=== PATIENT | female | born 2000 | race Caucasian/White ===

== ENCOUNTER → 2022-04-20 | Outpatient (CLI) | payer BC ==
--- NOTE | 2022-04-20 17:59 | Diagnostic Imaging Report ---
INDICATION: patient, survey. TECHNIQUE: Multiple real-time grayscale images were obtained over the gravid uterus. COMPARISON: There is no prior study for comparison. FINDINGS: Twin uterine gestations are visualized. Baby A measures 20 weeks 4 days in size. Baby B measures 21 weeks 0 days in size. Baby A is on the maternal right, Baby B is on maternal left. Both babies are in cephalic presentation. Amniotic fluid index for each was 20.86 cm. Placenta is anterior on Baby A and posterior on Baby B with no evidence of previa. heart rate for Baby A was 142 bpm. heart rate for Baby B was 160 bpm. Cervical length is 3.6 cm. survey shows normal-appearing kidneys and bladder for both fetuses. Normal-appearing stomach is seen. Intracranial ventricles appear normal on both sides. Four-chamber heart view appears normal. Cord insertion and three-vessel cord appear normal. Views of the spine are unremarkable. Maternal adnexa could not be visualized. Biometrical measurements are as follows: Biparietal 4.86 cm, age 20 weeks 5 days. Head circumference 18.06 cm, age 20 weeks 4 days. Abdominal circumference 14.93 cm, age 20 weeks 2 days. Femur length 3.34 cm, age 20 weeks 4 days. Sonographic estimate age: 20 weeks 4 days. Sonographic estimated date of delivery: 09/03/2022. Estimated Weight: 348 gm (+/- 51 gm). LMP percentile: 49%. heart rate: 142 beats per minute. number: 1 of 2. IMPRESSION: Twin intrauterine gestations, as described above, with Baby A measuring 20 weeks 4 days in size and Baby B measuring 21 weeks 0 days in size. There is no detectable abnormality for either fetus. Dictated by: Dictated on workstation # [id number]
== END ==
LOC: RAD 15:15
PROVIDERS: ATTEND Obstetrics & Gynecology
DX: Z36.89 Encounter for other specified antenatal screening (principal); Z3A.20 20 weeks gestation of pregnancy
CPT/HCPCS: 76805; 76810

== ENCOUNTER 2022-04-25 12:30 | Observation (INO) | payer BC ==
[~2022-04-25] VITALS: Ht 170.2 cm; Wt 70.4 kg
[2022-04-25] MEDS ORDERED: NS IV 1000 ML 1,000 ML ONE (12:52)
[2022-04-25 13:00] VITALS: BP 121/67
[2022-04-25] MEDS ORDERED: NS IV 1000 ML 1,000 ML IV SCH (13:00)
[2022-04-25 13:40] LABS: BILIRUBIN,URINE NEGATIVE (NEGATIVE); CLARITY,URINE CLEAR; COLOR,URINE YELLOW; GLUCOSE, URINE (UA) NEGATIVE (NEGATIVE); KETONES,URINE NEGATIVE (NEGATIVE); LEUKOCYTE ESTERASE ,URINE NEGATIVE (NEGATIVE); NITRITE,URINE NEGATIVE (NEGATIVE); PROTEIN,URINE NEGATIVE (NEGATIVE)
[2022-04-25 13:41] LABS: HEMATOCRIT 32 % (35-52); HEMOGLOBIN 11.3 g/dL (11.5-16.0); MEAN CORPUSCULAR HEMOGLOBIN 31 pg (25-34); MEAN CORPUSCULAR HGB CONC 35 g/dL (32-36); MEAN CORPUSCULAR VOLUME 89 fL (80-99); MEAN PLATELET VOLUME 9.8 fL (9.0-12.2); PLATELET COUNT 199 10^3/uL (130-400); WHITE BLOOD COUNT 10.8 10^3/uL (4.3-11.0)
[2022-04-25 13:52] LABS: BACTERIA,URINE NEGATIVE /HPF; RBC,URINE 0-2 /HPF; SQUAMOUS EPITHELIAL CELL,UR RARE /HPF
[2022-04-25 13:59] LABS: ALBUMIN 3.1 GM/DL (3.2-4.5); BILIRUBIN,TOTAL 0.2 MG/DL (0.1-1.0); CALCIUM 8.9 MG/DL (8.5-10.1); CREATININE SERUM 0.61 MG/DL (0.60-1.30); POTASSIUM 3.5 MMOL/L (3.6-5.0); TOTAL PROTEIN 5.7 GM/DL (6.4-8.2)
[2022-04-25] MEDS ORDERED: ceFAZolin INJECTION 1,000 MG in NS (IVPB) 50 ML IV ONE ×5 (14:00→22:00)
[2022-04-25] MEDS ORDERED: morphine INJ 4 MG/ML 1 ML (VIAL/SYRINGE) IVP PRN (14:00)
[2022-04-25] MEDS: ONDANSETRON 4 MG/2 ML (SDV) Z0FRAN IVP PRN ×2 (14:33→19:57)
[2022-04-25 15:05] VITALS: BP 99/53
--- NOTE | 2022-04-25 15:17 | Diagnostic Imaging Report ---
PROCEDURE: US Renal Bilateral. TECHNIQUE: Multiple real-time grayscale images were obtained over the kidneys in various projections bilaterally. INDICATION: Kidney stones. FINDINGS: Right kidney measures 12.7 x 5.8 x 5.5 cm, and the left kidney measures 10.1 x 5.6 x 5.6 cm. Cortical thickness and echogenicity are normal. There is an echogenic focus in the left kidney measuring approximately 4 mm x 7 mm in size suggestive of a kidney stone. There is moderate hydronephrosis bilaterally. The ureteral jets within the bladder were not visualized. IMPRESSION: Moderate bilateral hydronephrosis with probable nonobstructing calculus in the left kidney. Dictated by: Dictated on workstation # [id number]
--- NOTE | 2022-04-25 15:37 | Diagnostic Imaging Report ---
INDICATION: Evaluate well-being. FINDINGS: A twin intrauterine gestation is again noted. Baby A is on the maternal right in a cephalic presentation with a heart rate of 143 BPM. Baby B is maternal left in a transverse presentation with head to maternal right with a heart rate of 144 BPM. Baby A placenta is anterior and baby B placenta is posterior. Amniotic fluid index is 17 cm. Cervical length is 5 cm. There is no previa identified. No complicating features are detected. IMPRESSION: Twin live dichorionic, diamniotic of approximately 21 weeks' gestation. No complicating features are detected. Dictated by: Dictated on workstation # [id number]
[2022-04-25 16:00] VITALS: BP 104/51
[2022-04-25] MEDS: NS IV 1000 ML 1,000 ML IV SCH (18:48)
[2022-04-25] MEDS ORDERED: morphine INJ 10 MG/ML 1ML (SYR OR VIAL) ONE (19:53)
[2022-04-25] MEDS: morphine INJ 10 MG/ML 1ML (SYR OR VIAL) IVP PRN ×2 (19:56→23:29)
[2022-04-25 20:00] VITALS: BP 101/54
[2022-04-25] MEDS ORDERED: ACETAMINOPHEN 500 MG TAB (TYLENOL) PO PRN (23:30)
[2022-04-25 23:41] VITALS: BP 113/56
[2022-04-26] MEDS: morphine INJ 10 MG/ML 1ML (SYR OR VIAL) IVP PRN ×2 (03:08→08:48)
[2022-04-26] MEDS: NS IV 1000 ML 1,000 ML IV SCH (03:08)
[2022-04-26] MEDS ORDERED: LACTATED RINGERS 1,000 ML IV SCH (04:15)
[2022-04-26] MEDS ORDERED: TERBUTALINE INJ 1 MG/ML (BRETHINE) AMP SC PRN (04:15)
[2022-04-26] MEDS ORDERED: MINERAL OIL 30 ML UDC TOP PRN (04:15)
[2022-04-26] MEDS ORDERED: D5 LR IV SOLUTION 1,000 ML IV SCH (04:15)
[2022-04-26] MEDS ORDERED: CATHETER FLUSH 10 ML SYR IV SCH (06:00)
[2022-04-26 08:48] VITALS: BP 94/47
[2022-04-26] MEDS: ONDANSETRON 4 MG/2 ML (SDV) Z0FRAN IVP PRN (08:48)
--- NOTE | 2022-04-26 08:48 | History & Physical-OB ---
OB - Chief Complaint & HPI Date/Time Date of Admission: Date of Admission: Apr 25, 2022 at 12:44 Date seen by a Provider: Apr 26, 2022 Time Seen by a Provider: 08:35 Chief Complaint/History OB-Reason for Admission/Chief: Medical Complication (Nephrolitiasis) Hx : 1 Hx Para: 0 Expected Date of Delivery: Sep 05, 2022 Gestational Age in Weeks: 21 Gestational Age in Days: 1 Admission Nurse Assessment Rev: Yes History of Labs Laboratory Tests Test 04/25/22 13:20 Range/Units White Blood Count 10.8 4.3-11.0 10^3/uL Red Blood Count 3.63 L 3.80-5.11 10^6/uL Hemoglobin 11.3 L 11.5-16.0 g/dL Hematocrit 32 L 35-52 % Mean Corpuscular Volume 89 80-99 fL Mean Corpuscular Hemoglobin 31 25-34 pg Mean Corpuscular Hemoglobin Concent 35 32-36 g/dL Red Cell Distribution Width 12.5 10.0-14.5 % Platelet Count 199 130-400 10^3/uL Mean Platelet Volume 9.8 9.0-12.2 fL Urine Color YELLOW Urine Clarity CLEAR Urine pH 7.0 5-9 Urine Specific [place] 1.015 L 1.016-1.022 Urine Protein NEGATIVE NEGATIVE Urine Glucose (UA) NEGATIVE NEGATIVE Urine Ketones NEGATIVE NEGATIVE Urine Nitrite NEGATIVE NEGATIVE Urine Bilirubin NEGATIVE NEGATIVE Urine Urobilinogen 0.2 < = 1.0 MG/DL Urine Leukocyte Esterase NEGATIVE NEGATIVE Urine RBC (Auto) 1+ H NEGATIVE Urine RBC 0-2 /HPF Urine WBC NONE /HPF Urine Squamous Epithelial Cells RARE /HPF Urine Crystals NONE /LPF Urine Bacteria NEGATIVE /HPF Urine Casts NONE /LPF Urine Mucus NEGATIVE /LPF Urine Culture Indicated NO Sodium Level 139 135-145 MMOL/L Potassium Level 3.5 L 3.6-5.0 MMOL/L Chloride Level 110 H 98-107 MMOL/L Carbon Dioxide Level 19 L 21-32 MMOL/L Anion Gap 10 5-14 MMOL/L Blood Urea Nitrogen 6 L 7-18 MG/DL Creatinine 0.61 0.60-1.30 MG/DL Estimat Glomerular Filtration Rate 130 BUN/Creatinine Ratio 10 Glucose Level 78 70-105 MG/DL Calcium Level 8.9 8.5-10.1 MG/DL Corrected Calcium 9.6 8.5-10.1 MG/DL Total Bilirubin 0.2 0.1-1.0 MG/DL Aspartate Amino Transf (AST/SGOT) 23 5-34 U/L Alanine Aminotransferase (ALT/SGPT) 22 0-55 U/L Alkaline Phosphatase 73 40-136 U/L Total Protein 5.7 L 6.4-8.2 GM/DL Albumin 3.1 L 3.2-4.5 GM/DL Allergies and Home Medications Allergies Coded Allergies: No Known Drug Allergies (Unverified , 04/25/22) Patient Home Medication List Home Medication List Reviewed: Yes OB - History Hx of Present Care: Yes Ultrasounds: Abnormal US findings (Di di twins) Obstetrical Complications: None Medical Complications: Other (nephrolithiasis) Patient Past Medical History n/c Immunizations Influenza Vaccine Up-to-Date: No; Not Current OB - Admission Exam Physical Exam Vitals: Vital Signs 04/25/22 23:41 Temp 37.1 Pulse 84 Resp 18 B/P (MAP) 113/56 (75) Pulse Ox 99 O2 Delivery Room Air HEENT: NCAT Heart: Rhythm Normal Lungs: Clear Abdomen: Other (diffuse low pelvic tenderness, radiating around bilaterally to flanks) Cervical Dilatation: None Effacement: 50% Station: -3 Membranes: Intact Labs Laboratory Tests Test 04/25/22 13:20 Range/Units White Blood Count 10.8 4.3-11.0 10^3/uL Red Blood Count 3.63 L 3.80-5.11 10^6/uL Hemoglobin 11.3 L 11.5-16.0 g/dL Hematocrit 32 L 35-52 % Mean Corpuscular Volume 89 80-99 fL Mean Corpuscular Hemoglobin 31 25-34 pg Mean Corpuscular Hemoglobin Concent 35 32-36 g/dL Red Cell Distribution Width 12.5 10.0-14.5 % Platelet Count 199 130-400 10^3/uL Mean Platelet Volume 9.8 9.0-12.2 fL Urine Color YELLOW Urine Clarity CLEAR Urine pH 7.0 5-9 Urine Specific [place] 1.015 L 1.016-1.022 Urine Protein NEGATIVE NEGATIVE Urine Glucose (UA) NEGATIVE NEGATIVE Urine Ketones NEGATIVE NEGATIVE Urine Nitrite NEGATIVE NEGATIVE Urine Bilirubin NEGATIVE NEGATIVE Urine Urobilinogen 0.2 < = 1.0 MG/DL Urine Leukocyte Esterase NEGATIVE NEGATIVE Urine RBC (Auto) 1+ H NEGATIVE Urine RBC 0-2 /HPF Urine WBC NONE /HPF Urine Squamous Epithelial Cells RARE /HPF Urine Crystals NONE /LPF Urine Bacteria NEGATIVE /HPF Urine Casts NONE /LPF Urine Mucus NEGATIVE /LPF Urine Culture Indicated NO Sodium Level 139 135-145 MMOL/L Potassium Level 3.5 L 3.6-5.0 MMOL/L Chloride Level 110 H 98-107 MMOL/L Carbon Dioxide Level 19 L 21-32 MMOL/L Anion Gap 10 5-14 MMOL/L Blood Urea Nitrogen 6 L 7-18 MG/DL Creatinine 0.61 0.60-1.30 MG/DL Estimat Glomerular Filtration Rate 130 BUN/Creatinine Ratio 10 Glucose Level 78 70-105 MG/DL Calcium Level 8.9 8.5-10.1 MG/DL Corrected Calcium 9.6 8.5-10.1 MG/DL Total Bilirubin 0.2 0.1-1.0 MG/DL Aspartate Amino Transf (AST/SGOT) 23 5-34 U/L Alanine Aminotransferase (ALT/SGPT) 22 0-55 U/L Alkaline Phosphatase 73 40-136 U/L Total Protein 5.7 L 6.4-8.2 GM/DL Albumin 3.1 L 3.2-4.5 GM/DL OB - Assessment/Plan/Diagnosis Assessment Assessment: other Admission Dx Diagnosis: 22 yo @ 21.1 weeks with Di/Di Twins Nephrolithiasis Acute flank, low suprapubic pain Microscopic hematuria Admission Status: Observation Reason for Inpatient Admission: Diagnosis: 22 yo @ 21.1 weeks with Di/Di Twins Nephrolithiasis Acute flank, low suprapubic pain Microscopic hematuria Plan Other Plan IVF hydration Pain control Prophylaxis antibiotics -Plan to send home today on oral hydration, pain control, and antibiotics to follow up in office tomorrow ANTOINE SHELDON DO Apr 26, 2022 08:48
== END 2022-04-26 09:17 | disposition home or self-care (01) ==
LOC: LDRP 12:30 → UNDOADMOB 12:44 → LDRP 12:44 → INTOOBSV 04-26 04:00 → OBSVTOIN 04-26 04:00 → UNDODISOB 04-26 09:17
PROVIDERS: ADMIT Obstetrics & Gynecology; ATTEND Obstetrics & Gynecology
DX: O26.832 Pregnancy related renal disease, second trimester (principal); N20.0 Calculus of kidney; Z3A.21 21 weeks gestation of pregnancy
CPT/HCPCS: 36415; 76770; 76815; 80053; 81000; 85027; 87210; G0378

== ENCOUNTER 2022-07-05 09:59 | Outpatient (CLI) | payer BC ==
[~2022-07-05] VITALS: Ht 170.2 cm; Wt 77.4 kg
[2022-07-05 10:17] VITALS: BP 111/67
[2022-07-05 10:50] LABS: BILIRUBIN,URINE NEGATIVE (NEGATIVE); CLARITY,URINE CLEAR; COLOR,URINE YELLOW; GLUCOSE, URINE (UA) NEGATIVE (NEGATIVE); KETONES,URINE NEGATIVE (NEGATIVE); LEUKOCYTE ESTERASE ,URINE 1+ (NEGATIVE); NITRITE,URINE NEGATIVE (NEGATIVE); PROTEIN,URINE TRACE (NEGATIVE)
[2022-07-05 11:00] LABS: RBC,URINE 50-100 /HPF; WBC,URINE 0-2 /HPF
[2022-07-05 11:01] LABS: BACTERIA,URINE MODERATE /HPF
[2022-07-05 11:07] VITALS: BP 98/56
[2022-07-05] MEDS ORDERED: NS IV 500 ML 500 ML IV SCH (11:15)
[2022-07-05] MEDS: BETAMETHASONE ACE/NA PHOS 6 MG/ML (CELESTONE SOLUSPAN) IM SCH (11:33)
[2022-07-05] MEDS ORDERED: D5 LR IV SOLUTION 1,000 ML IV ONE (12:38)
[2022-07-05] MEDS: D5 LR IV SOLUTION 1,000 ML IV SCH ×4 (12:44→19:40)
[2022-07-05] MEDS ORDERED: morphine INJ 10 MG/ML 1ML (SYR OR VIAL) IVP STA ×2 (14:27→19:02)
--- NOTE | 2022-07-05 14:32 | History & Physical-OB ---
OB - Chief Complaint & HPI Date/Time Date of Admission: Date of Admission: Date seen by a Provider: Jul 05, 2022 Time Seen by a Provider: 14:30 Chief Complaint/History OB-Reason for Admission/Chief: Hx : 1 Hx Para: 0 Expected Date of Delivery: Sep 05, 2022 Gestational Age in Weeks: 31 Gestational Age in Days: 1 Other reason for admission: Patient admitted for observation due to irregular contractions at 31 weeks with di/di twins. Reports after some fluid hydration no improvement in discomfort. Contractions have spaced out on tocometry. Admission Nurse Assessment Rev: Yes Allergies and Home Medications Allergies Coded Allergies: No Known Drug Allergies (Unverified , 04/25/22) Patient Home Medication List Home Medication List Reviewed: Yes No Active Prescriptions or Reported Meds OB - History Hx of Present Care: Yes Obstetrical History Hx : 1 Hx Para: 0 Hx Total # of Abortions (Spona: 0 Patient Past Medical History n/c Social History/Family History 2nd Hand Smoke Exposure: No OB - Admission Exam Physical Exam Vitals: Vital Signs 07/05/22 10:17 Temp 36.5 Pulse 85 Resp 18 B/P (MAP) 111/67 O2 Delivery Room Air HEENT: NCAT Heart: Rhythm Normal Lungs: Clear Abdomen: Gravid Extremities: Normal Reflexes: Normal Cervical Dilatation: Fingertip Effacement: 50% Station: -3 Membranes: Intact Heart Rate: 130's Accelerations: Accelerations Present Decelerations: No Decelerations Correction Variability: Average (6-25) Contractions on Admission: 6-10 Minutes Apart Intensity: Mild Labs Laboratory Tests Test 07/05/22 10:15 Range/Units Urine Color YELLOW Urine Clarity CLEAR Urine pH 7.0 5-9 Urine Specific [place] 1.010 L 1.016-1.022 Urine Protein TRACE H NEGATIVE Urine Glucose (UA) NEGATIVE NEGATIVE Urine Ketones NEGATIVE NEGATIVE Urine Nitrite NEGATIVE NEGATIVE Urine Bilirubin NEGATIVE NEGATIVE Urine Urobilinogen 0.2 < = 1.0 MG/DL Urine Leukocyte Esterase 1+ H NEGATIVE Urine RBC (Auto) 3+ H NEGATIVE Urine RBC 50-100 H /HPF Urine WBC 0-2 /HPF Urine Squamous Epithelial Cells 2-5 /HPF Urine Crystals NONE /LPF Urine Bacteria MODERATE H /HPF Urine Casts NONE /LPF Urine Mucus NEGATIVE /LPF Urine Culture Indicated NO OB - Assessment/Plan/Diagnosis Assessment Assessment: observation Admission Dx 22 yo @ 31 weeks with Di/Di Twins Irregular contractions Pelvic pain Dehydration Admission Status: Observation Reason for Inpatient Admission: 31 week contractions Plan Plan: Other Other Plan Will give pain control for now due to discomfort, betamethason given for lung maturity, IVF bolus given and plan to dismiss later this evening is still no cervical change. ANTOINE SHELDON DO Jul 05, 2022 14:32
[2022-07-05 14:46] VITALS: BP 109/55
[2022-07-05 19:45] VITALS: BP 117/61
[2022-07-05] MEDS ORDERED: diphenhydrAMINE 50 MG/ML INJ (BENADRYL) ONE (20:45)
[2022-07-05] MEDS ORDERED: diphenhydrAMINE 50 MG/ML INJ (BENADRYL) IVP ONE (21:00)
[2022-07-05] MEDS: morphine INJ 4 MG/ML 1 ML (VIAL/SYRINGE) IVP PRN (23:55)
[2022-07-06 00:02] VITALS: BP 117/64
[2022-07-06] MEDS: D5 LR IV SOLUTION 1,000 ML IV SCH ×2 (00:29→07:05)
[2022-07-06 04:29] VITALS: BP 104/56
[2022-07-06] MEDS: morphine INJ 4 MG/ML 1 ML (VIAL/SYRINGE) IVP PRN ×2 (04:36→07:40)
[2022-07-06 07:40] VITALS: BP 121/72
[2022-07-06] MEDS: BETAMETHASONE ACE/NA PHOS 6 MG/ML (CELESTONE SOLUSPAN) IM SCH (10:10)
== END 2022-07-06 10:27 | disposition home or self-care (01) ==
LOC: LDRP 09:59 → WSo 09:59
PROVIDERS: ATTEND Obstetrics & Gynecology
DX: O62.9 Abnormality of forces of labor, unspecified (principal); Z3A.31 31 weeks gestation of pregnancy
CPT/HCPCS: 81000; 96360; 96361; 96372; 96374; 96375; 96376; G0378

== ENCOUNTER 2022-08-22 01:28 | Inpatient (IN) | payer BC ==
[2022-08-21] MEDS: fentaNYL 2 mcg/ml BUPIVA 0.125 100 ML EPI SCH (04:54)
[2022-08-22] VITALS (53 sets, daily range): BP systolic 101–146; BP diastolic 55–90
[~2022-08-22] VITALS: Ht 170.2 cm; Wt 83.6 kg
[2022-08-22] MEDS ORDERED: HYDROmorphone 2 MG/ML VIAL (DILAUDID) IV ONE (02:15)
[2022-08-22] MEDS ORDERED: HYDROmorphone 2 MG/ML VIAL (DILAUDID) ONE (02:16)
[2022-08-22 02:24] LABS: BILIRUBIN,URINE NEGATIVE (NEGATIVE); CLARITY,URINE CLEAR; COLOR,URINE YELLOW; GLUCOSE, URINE (UA) NEGATIVE (NEGATIVE); KETONES,URINE NEGATIVE (NEGATIVE); LEUKOCYTE ESTERASE ,URINE TRACE (NEGATIVE); NITRITE,URINE NEGATIVE (NEGATIVE); PROTEIN,URINE NEGATIVE (NEGATIVE)
[2022-08-22] MEDS: D5 LR IV SOLUTION 1,000 ML IV SCH ×2 (02:29→09:54)
[2022-08-22 02:30] LABS: BASOPHILS % (AUTO) 0 % (0-10); EOSINOPHILS # (AUTO) 0.2 10^3/uL (0.0-0.3); EOSINOPHILS % (AUTO) 1 % (0-10); HEMATOCRIT 35 % (35-52); HEMOGLOBIN 11.2 g/dL (11.5-16.0); LYMPHOCYTES # (AUTO) 2.8 10^3/uL (1.0-4.0); LYMPHOCYTES % (AUTO) 23 % (12-44); MEAN CORPUSCULAR HEMOGLOBIN 25 pg (25-34); MEAN CORPUSCULAR HGB CONC 33 g/dL (32-36); MEAN CORPUSCULAR VOLUME 75 fL (80-99); MONOCYTES # (AUTO) 0.7 10^3/uL (0.0-1.0); MONOCYTES % (AUTO) 6 % (0-12); NEUTROPHILS # (AUTO) 8.4 10^3/uL (1.8-7.8); NEUTROPHILS % (AUTO) 69 % (42-75); PLATELET COUNT 211 10^3/uL (130-400); WHITE BLOOD COUNT 12.2 10^3/uL (4.3-11.0)
[2022-08-22 02:39] LABS: BACTERIA,URINE TRACE /HPF; RBC,URINE 0-2 /HPF; SQUAMOUS EPITHELIAL CELL,UR RARE /HPF; WBC,URINE 0-2 /HPF
[2022-08-22] MEDS ORDERED: ONDANSETRON 4 MG/2 ML (SDV) Z0FRAN IVP PRN (02:45)
[2022-08-22] MEDS ORDERED: LACTATED RINGERS 1,000 ML IV ONE (03:30)
[2022-08-22] MEDS ORDERED: fentaNYL 2 mcg/ml BUPIVA 0.125 100 ML ONE (04:11)
[2022-08-22] MEDS ORDERED: fentaNYL INJ 100 MCG/2 ML AMP ONE (04:39)
[2022-08-22] MEDS ORDERED: LACTATED RINGERS 1,000 ML IV SCH (05:15)
[2022-08-22] MEDS ORDERED: diphenhydrAMINE 50 MG/ML INJ (BENADRYL) IV PRN (05:15)
[2022-08-22] MEDS ORDERED: NALOXONE 0.4 MG/ML 1 ML (NARCAN) VIAL IV PRN ×3 (05:15→13:30)
[2022-08-22] MEDS ORDERED: METOCLOPRAMIDE INJ 10 MG/2 ML (REGLAN) IV PRN (05:15)
[2022-08-22] MEDS ORDERED: ONDANSETRON 4 MG/2 ML (SDV) Z0FRAN IV PRN (05:15)
[2022-08-22] MEDS ORDERED: CATHETER FLUSH 10 ML SYR IV SCH ×2 (06:00→14:00)
[2022-08-22] MEDS ORDERED: PREN-142 PO (06:26)
[2022-08-22] MEDS ORDERED: AMPICILLIN FOR IV USE 2,000 MG in NS (IVPB) 50 ML IV SCH (08:10)
[2022-08-22] MEDS ORDERED: LIDOCAINE 1% INJ 10 ML VIAL ONE (08:16)
[2022-08-22] MEDS ORDERED: OXYTOCIN PRE-MIX DRIP 1,000 ML IV ONE (08:16)
--- NOTE | 2022-08-22 08:19 | History & Physical-OB ---
OB - Chief Complaint & HPI Date/Time Date of Admission: Date of Admission: Aug 22, 2022 at 1:50 am Date seen by a Provider: Aug 22, 2022 Time Seen by a Provider: 07:25 Chief Complaint/History OB-Reason for Admission/Chief: Onset of Labor Hx : 1 Hx Para: 0 Expected Date of Delivery: Sep 05, 2022 Gestational Age in Weeks: 38 Gestational Age in Days: 0 Admission Nurse Assessment Rev: Yes History of Labs O pos Antibody neg RI RPR NR HBsAg NR HIV NR GC neg GBS neg Allergies and Home Medications Allergies Coded Allergies: No Known Drug Allergies (Unverified , 04/25/22) Patient Home Medication List Home Medication List Reviewed: Yes Vit No.124/Iron/FA ( Vitamin Tablet) 27 Mg Iron-800 Mcg Tablet, 1 EACH PO DAILY, (Reported) Entered as Reported by: CHARIS YADAV on 08/22/22625 Last Action: New Order OB - History Hx of Present Care: Yes Ultrasounds: Normal mid trimester US (diamniotic dichorionic twin vtx/vtx) Obstetrical Complications: None Medical Complications: None Patient Past Medical History Nephrolithiasis Social History/Family History 2nd Hand Smoke Exposure: No OB - Admission Exam Physical Exam Vitals: Vital Signs 08/22/22 08/22/22 08/22/22 04:56 05:26 06:42 Temp 36.7 Pulse 73 Resp 18 B/P (MAP) 108/56 (73) Pulse Ox 97 O2 Delivery Room Air HEENT: NCAT Heart: Rhythm Normal Lungs: Clear Abdomen: Gravid Extremities: Normal Reflexes: Normal Cervical Dilatation: 5cm Effacement: 75% Station: -1 Membranes: Intact Heart Rate: 130's Accelerations: Accelerations Present Decelerations: No Decelerations Short Term Variability: Present Fdc Variability: Average (6-25) Contractions on Admission: 6-10 Minutes Apart Intensity: Firm Labs Laboratory Tests Test 08/22/22 01:29 08/22/22 02:10 Range/Units Urine Color YELLOW Urine Clarity CLEAR Urine pH 7.0 5-9 Urine Specific [place] <=1.005 1.016-1.022 Urine Protein NEGATIVE NEGATIVE Urine Glucose (UA) NEGATIVE NEGATIVE Urine Ketones NEGATIVE NEGATIVE Urine Nitrite NEGATIVE NEGATIVE Urine Bilirubin NEGATIVE NEGATIVE Urine Urobilinogen 0.2 < = 1.0 MG/DL Urine Leukocyte Esterase TRACE H NEGATIVE Urine RBC (Auto) TRACE-I H NEGATIVE Urine RBC 0-2 /HPF Urine WBC 0-2 /HPF Urine Squamous Epithelial Cells RARE /HPF Urine Crystals NONE /LPF Urine Bacteria TRACE /HPF Urine Casts NONE /LPF Urine Mucus NEGATIVE /LPF Urine Culture Indicated NO White Blood Count 12.2 H 4.3-11.0 10^3/uL Red Blood Count 4.58 3.80-5.11 10^6/uL Hemoglobin 11.2 L 11.5-16.0 g/dL Hematocrit 35 35-52 % Mean Corpuscular Volume 75 L 80-99 fL Mean Corpuscular Hemoglobin 25 25-34 pg Mean Corpuscular Hemoglobin Concent 33 32-36 g/dL Red Cell Distribution Width 15.2 H 10.0-14.5 % Platelet Count 211 130-400 10^3/uL Mean Platelet Volume 11.0 9.0-12.2 fL Immature Granulocyte % (Auto) 1 % Neutrophils (%) (Auto) 69 42-75 % Lymphocytes (%) (Auto) 23 12-44 % Monocytes (%) (Auto) 6 0-12 % Eosinophils (%) (Auto) 1 0-10 % Basophils (%) (Auto) 0 0-10 % Neutrophils # (Auto) 8.4 H 1.8-7.8 10^3/uL Lymphocytes # (Auto) 2.8 1.0-4.0 10^3/uL Monocytes # (Auto) 0.7 0.0-1.0 10^3/uL Eosinophils # (Auto) 0.2 0.0-0.3 10^3/uL Basophils # (Auto) 0.0 0.0-0.1 10^3/uL Immature Granulocyte # (Auto) 0.1 0.0-0.1 10^3/uL Syphilis Total Antibody Negative Negative OB - Assessment/Plan/Diagnosis Assessment Assessment: active labor Admission Dx 22 yo @ 38 weeks Diamniotic dichorionic twin Active labor GBS neg Admission Status: Inpatient Order (span 2 midnights) Reason for Inpatient Admission: 22 yo @ 38 weeks Diamniotic dichorionic twin Active labor GBS neg Plan Plan: Expectant Management ANTOINE SHELDON DO Aug 22, 2022 8:19 am
--- NOTE | 2022-08-22 09:45 | Anesthesia-Regional Post-Op ---
Regional Patient Condition Mental Status: Alert, Oriented x3 Circulation: Same as Pre-Op Headache: Absent Sensation: Full Recovery Motor Block: Absent Post Op Complications Complications None Follow Up Care/Instructions Patient Instructions None needed. Anesthesia/Patient Condition Patient is doing well, no complaints, stable vital signs, no apparent adverse anesthesia problems. No complications reported per nursing. ALBERTO GAUTAM CRNA Aug 22, 2022 09:45
[2022-08-22] MEDS: fentaNYL 2 mcg/ml BUPIVA 0.125 100 ML EPI SCH (10:56)
[2022-08-22] MEDS ORDERED: METHYLERGONOVINE 0.2 MG/ML (METHERGINE) AMP ONE (11:59)
[2022-08-22] MEDS ORDERED: AMPICILLIN FOR IV USE 1,000 MG in NS (IVPB) 50 ML IV SCH (12:15)
[2022-08-22] MEDS: OXYTOCIN PRE-MIX DRIP 500 ML IV SCH ×2 (13:08→13:42)
--- NOTE | 2022-08-22 13:29 | OB Labor & Delivery Record ---
L&D History Date of Service Date of Service: Aug 22, 2022 History Expected Date of Delivery: Sep 05, 2022 Gestational Age in Weeks: 38 Hx : 1 Hx Para: 0 Complications Events: Routine care (Di/Di Twins) Operative Indications (Cesarea: N/A-Vaginal Delivery Intrapartal Events: None L&D Stage1 Stage One Onset of Labor - Date: Aug 22, 2022 Monitors and Tracing Monitor Mode: External Heart Rate: 145 Monitor Decelerations: None Station: -1 Perioperative Tech Variability: Average (6-10) Short Term Variability: Present Presentation: Vertex Vital Signs VS - Last 72 Hours, by Label 08/22/22 08/22/22 08/22/22 08/22/22 01:48 01:48 04:44 04:47 Temp 36.6 36.6 Pulse 86 86 98 105 Resp 18 18 18 18 B/P (MAP) 120/72 (88) 131/74 (93) 132/80 (97) Pulse Ox 98 98 97 97 O2 Delivery Room Air Room Air Room Air Room Air 08/22/22 08/22/22 08/22/22 08/22/22 04:50 04:53 04:56 04:58 Temp 36.7 Pulse 90 96 83 82 Resp 18 18 18 18 B/P (MAP) 124/72 (89) 123/70 (87) 104/58 (73) 105/59 (74) Pulse Ox 97 96 96 97 O2 Delivery Room Air Room Air Room Air Room Air 08/22/22 08/22/22 08/22/22 08/22/22 05:03 05:06 05:11 05:17 Pulse 76 86 88 75 Resp 18 18 18 18 B/P (MAP) 106/56 (73) 101/56 (71) 111/56 (74) 115/59 (77) Pulse Ox 98 98 98 98 O2 Delivery Room Air Room Air Room Air Room Air 08/22/22 08/22/22 08/22/22 08/22/22 05:23 05:26 05:42 05:58 Pulse 90 103 67 71 Resp 18 18 18 18 B/P (MAP) 102/58 (73) 111/55 (73) 107/60 (76) 105/55 (72) Pulse Ox 98 97 O2 Delivery Room Air Room Air Room Air Room Air 08/22/22 08/22/22 08/22/22 08/22/22 06:11 06:26 06:42 07:15 Pulse 65 78 73 74 Resp 18 18 18 18 B/P (MAP) 111/58 (75) 109/60 (76) 108/56 (73) 110/59 (76) O2 Delivery Room Air Room Air Room Air Room Air 08/22/22 08/22/22 08/22/22 08/22/22 07:30 07:45 08:00 08:15 Temp 37.1 Pulse 71 117 107 82 Resp 18 18 18 18 B/P (MAP) 108/56 (73) 120/58 (78) 120/71 (87) 120/70 (87) O2 Delivery Room Air Room Air Room Air Room Air 08/22/22 08/22/22 08/22/22 08/22/22 08:30 08:45 09:00 09:15 Pulse 79 93 96 93 Resp 18 18 18 18 B/P (MAP) 122/68 (86) 119/69 (86) 114/66 (82) 115/75 (88) O2 Delivery Room Air Room Air Room Air Room Air 08/22/22 08/22/22 08/22/22 08/22/22 09:30 09:45 10:00 10:15 Pulse 86 83 105 96 Resp 18 18 18 18 B/P (MAP) 111/71 (84) 112/69 (83) 112/69 (83) 120/75 (90) O2 Delivery Room Air Room Air Room Air Room Air 08/22/22 08/22/22 08/22/22 10:30 10:45 11:00 Temp 37.1 Pulse 99 98 90 Resp 18 18 18 B/P (MAP) 127/75 (92) 119/75 (90) 129/78 (95) O2 Delivery Room Air Room Air Room Air Rupture of Membranes Spontaneous Ruture of Membrane: No Amniotic Membrane Rupture Time: 730 Amniotic Membrane Fluid Desc.: Clear Vaginal Bleeding Description: Normal Show Induction/Anesthesia Epidural Cath Placement - Time: 447 Progress/Notes Patient admitted banquet lead in active labor, she had epidural placed and AROM performed this AM, she progressed with no other augmentation to complete and + 2 station L&D Stage2 Monitors and Tracing Monitor Mode: External Heart Rate: 145 Monitor Decelerations: None Cord Descript/Complications Complications Fetus A born without difficulty, JULIO over intact perineum. Maternal effort was at the end of pushing fetus B to past 2+ - 3+ station. Midline episiotomy performed. Kiwi vacuum extractor placed on flexion point, 450 mmHg applied using handpiece pump and with gentle extension the head of fetus two was delivered over midline episiotomy without extension. Remainder of delivery of unremarkable. Delivery Type Delivery Method: Low Vacuum Extraction Anterior Shoulder: Right Episiotomy/Perineal Laceration Laceraction(s)/Extensions: Yes Episiotomy Description: Midline Degree (describe repair) midline repaired using 3-0 and 2-0 vicryl suture in usual fashion. Condition of Infant Delivery Notes 2 Live female infants weight A 5lbs 11oz B 6lbs 7oz, APGARs: 8/9 and 7/8 respectively Condition of Infant Condition of Infant: Living Exam: No Observed Abnormalities Resuscitation Resuscitation: N/A - Spontaneous Resp L&D Stage3 Stage Three Stage III Date: Aug 22, 2022 Pictocin Pitocin Administration Comment: 30 mu wide open after delivery of placenta Placenta Delivery Placenta Delivery: Spontaneous Delivery Summary Summary Estimated blood loss (mL): 400 Attending at delivery: Antoine Sheldon DO Condition of Delivery Examined: Cervix Examined, Uterus Explored Post Hemorrhage: No Condition of Mother stable Condition of Infant (s) stable ANTOINE SHELDON DO Aug 22, 2022 13:29
[2022-08-22] MEDS ORDERED: HYDROcodone/APAP 5 MG/325 MG (LORTAB) TAB PO PRN (13:30)
[2022-08-22] MEDS ORDERED: TETANUS,DIPTH,PERTUSS P/F (BOOSTRIX) 0.5 ML VIAL IM ONE (13:30)
[2022-08-22] MEDS ORDERED: MEASLES,MUMPS,RUBELLA 1 EA INJ SQ ONE (13:30)
[2022-08-22] MEDS: WITCH HAZEL(TUCKS) 40 EA JAR TOP PRN (13:57)
[2022-08-22] MEDS: BENZOCAINE/MENTHOL (DERMOPLAST) 56 ML CAN TP PRN (13:57)
[2022-08-22] MEDS ORDERED: METHYLERGONOVINE 0.2 MG/ML (METHERGINE) AMP IM ONE (14:00)
[2022-08-22] MEDS: DIBUCAINE 1% OINTMENT 28 GM TUBE TOP PRN (18:10)
[2022-08-22] MEDS: DOCUSATE SODIUM 100 MG (COLACE) CAP PO SCH (20:06)
[2022-08-22] MEDS: IBUPROFEN 600 MG (MOTRIN) TAB PO SCH (20:07)
[2022-08-22] MEDS: HYDROcodone/APAP 5 MG/325 MG (LORTAB) TAB PO PRN (20:07)
[2022-08-23 00:15] VITALS: BP 100/79
[2022-08-23] MEDS: HYDROcodone/APAP 5 MG/325 MG (LORTAB) TAB PO PRN ×3 (02:29→18:24)
[2022-08-23] MEDS: IBUPROFEN 600 MG (MOTRIN) TAB PO SCH ×4 (02:29→20:57)
[2022-08-23 05:58] LABS: BASOPHILS % (AUTO) 0 % (0-10); EOSINOPHILS # (AUTO) 0.1 10^3/uL (0.0-0.3); EOSINOPHILS % (AUTO) 1 % (0-10); HEMATOCRIT 25 % (35-52); HEMOGLOBIN 7.9 g/dL (11.5-16.0); LYMPHOCYTES # (AUTO) 2.5 10^3/uL (1.0-4.0); LYMPHOCYTES % (AUTO) 20 % (12-44); MEAN CORPUSCULAR HEMOGLOBIN 24 pg (25-34); MEAN CORPUSCULAR HGB CONC 32 g/dL (32-36); MEAN CORPUSCULAR VOLUME 76 fL (80-99); MEAN PLATELET VOLUME 10.6 fL (9.0-12.2); MONOCYTES # (AUTO) 0.8 10^3/uL (0.0-1.0); MONOCYTES % (AUTO) 6 % (0-12); NEUTROPHILS # (AUTO) 8.8 10^3/uL (1.8-7.8); NEUTROPHILS % (AUTO) 72 % (42-75); PLATELET COUNT 133 10^3/uL (130-400); WHITE BLOOD COUNT 12.3 10^3/uL (4.3-11.0)
[2022-08-23 06:11] VITALS: BP 106/53
[2022-08-23] MEDS ORDERED: FERR325T24 PO (07:47)
[2022-08-23] MEDS ORDERED: BENZ78AE5 TP (07:47)
[2022-08-23] MEDS ORDERED: ACHD5005 PO (07:47)
[2022-08-23] MEDS ORDERED: IBUP-844 PO (07:47)
[2022-08-23] MEDS ORDERED: DIBU30OI TOP (07:47)
[2022-08-23] MEDS ORDERED: WTCHGPD TOP (07:47)
[2022-08-23] MEDS ORDERED: DOCU100C37 PO (07:47)
--- NOTE | 2022-08-23 07:58 | Postpartum Progress Note ---
Note Note Day # 1 Subjective: Patient is without complaints. Ambulating, voiding. Tolerating a regular diet without nausea or vomiting. Normal lochia. Pain is well controlled with oral pain medications.Patient is and it is going well.. [] Objective: [] Physical Exam: General - Alert and oriented, no apparent distress Breasts symmetrical with no erythema or edema Heart regular rate and rhythm Lungs clear to auscultation bilaterally Abdomen - Soft, appropriately tender to palpation, non-distended, fundus firm at umbilicus normal female external genitalia wound care moderate Extremities - no edema, negative Wendy's bilaterally Assessment: [] post- day #1 status post vaginal deliveryTwin gestation. Recovering well, hemodynamically stable Plan: Routine care. Encourage breast feeding. Encourage ambulation. Ferrous sulfate supplementation. Plan for discharge [] Vitals - Labs Vital Signs - I&O Vital Signs Date Time Temp Pulse Resp B/P (MAP) Pulse Ox O2 Delivery O2 Flow Rate FiO2 08/23/22 06:11 36.3 70 18 106/53 (70) 98 Room Air 08/23/22 00:15 36.5 74 18 100/79 (86) 97 Room Air 08/22/22 20:08 36.7 87 18 117/64 (81) 96 Room Air 08/22/22 16:30 80 18 112/70 (84) Room Air 08/22/22 16:15 97 18 113/72 (86) Room Air 08/22/22 16:00 72 18 116/71 (86) Room Air 08/22/22 15:45 36.8 78 18 123/70 (87) Room Air 08/22/22 15:30 85 18 115/72 (86) Room Air 08/22/22 15:15 81 18 135/77 (96) Room Air 08/22/22 15:00 77 18 125/62 (83) Room Air 08/22/22 14:15 72 18 120/75 (90) Room Air 08/22/22 13:58 80 18 121/75 (90) Room Air 08/22/22 13:43 96 18 122/80 (94) Room Air 08/22/22 13:29 37.3 112 18 131/71 (91) Room Air 08/22/22 12:52 37.1 08/22/22 12:45 141 18 146/90 (108) Room Air 08/22/22 12:30 111 18 121/77 (92) Room Air 08/22/22 12:15 99 18 127/76 (93) Room Air 08/22/22 12:00 100 18 125/59 (81) Room Air 08/22/22 11:45 107 18 140/76 (97) Room Air 08/22/22 11:30 106 18 131/77 (95) Room Air 08/22/22 11:15 113 18 132/67 (88) Room Air 08/22/22 11:00 90 18 129/78 (95) Room Air 08/22/22 10:45 37.1 98 18 119/75 (90) Room Air 08/22/22 10:30 99 18 127/75 (92) Room Air 08/22/22 10:15 96 18 120/75 (90) Room Air 08/22/22 10:00 105 18 112/69 (83) Room Air 08/22/22 09:45 83 18 112/69 (83) Room Air 08/22/22 09:30 86 18 111/71 (84) Room Air 08/22/22 09:15 93 18 115/75 (88) Room Air 08/22/22 09:00 96 18 114/66 (82) Room Air 08/22/22 08:45 93 18 119/69 (86) Room Air 08/22/22 08:30 79 18 122/68 (86) Room Air 08/22/22 08:15 82 18 120/70 (87) Room Air 08/22/22 08:00 107 18 120/71 (87) Room Air I & O 08/23/22 07:00 Intake Total 2100 ml Balance 2100 ml Labs Laboratory Tests 08/23/22 05:45: White Blood Count 12.3H, Red Blood Count 3.24L, Hemoglobin 7.9#L, Hematocrit 25L , Mean Corpuscular Volume 76L, Mean Corpuscular Hemoglobin 24L, Mean Corpuscular Hemoglobin Concent 32, Red Cell Distribution Width 15.4H, Platelet Count 133, Mean Platelet Volume 10.6, Immature Granulocyte % (Auto) 1, Neutrophils (%) (Auto) 72, Lymphocytes (%) (Auto) 20, Monocytes (%) (Auto) 6, Eosinophils (%) (Auto) 1, Basophils (%) (Auto) 0, Neutrophils # (Auto) 8.8H, Lymphocytes # (Auto) 2.5, Monocytes # (Auto) 0.8, Eosinophils # (Auto) 0.1, Basophils # (Auto) 0.0, Immature Granulocyte # (Auto) 0.1 ABILIO GUADARRAMA DO Aug 23, 2022 07:58
[2022-08-23] MEDS: FERROUS SULF 325 MG (IRON) TAB PO SCH (09:14)
[2022-08-23] MEDS: DOCUSATE SODIUM 100 MG (COLACE) CAP PO SCH ×2 (09:15→20:57)
[2022-08-23 09:16] VITALS: BP 108/56
--- NOTE | 2022-08-23 10:58 | Anesthesia-Regional Post-Op ---
Regional Patient Condition Mental Status: Alert, Oriented x3 Circulation: Same as Pre-Op Headache: Absent Sensation: Decreased Motor Block: Absent Post Op Complications Complications None Follow Up Care/Instructions Patient Instructions None needed. Anesthesia/Patient Condition Patient is doing well, stable vital signs, no complications reported per nursing. She complains of right thigh numbness and tingling. We will evaluate her again tomorrow to see if that has resolved. GRETEL RODGERS CRNA Aug 23, 2022 10:58
[2022-08-23 15:26] VITALS: BP 120/74
[2022-08-23 20:57] VITALS: BP 108/63
[2022-08-24] MEDS: HYDROcodone/APAP 5 MG/325 MG (LORTAB) TAB PO PRN ×2 (02:59→09:05)
[2022-08-24] MEDS: IBUPROFEN 600 MG (MOTRIN) TAB PO SCH ×2 (02:59→08:44)
[2022-08-24 03:00] VITALS: BP 111/72
--- NOTE | 2022-08-24 07:37 | Postpartum Progress Note ---
Note Note Day # 2 Subjective: Patient is without complaints. Ambulating, voiding. Tolerating a regular diet without nausea or vomiting. Normal lochia. Pain is well controlled with oral pain medications. Objective: Physical Exam: General - Alert and oriented, no apparent distress Abdomen - Soft, appropriately tender to palpation, non-distended, fundus firm at umbilicus Extremities - no edema, negative Wendy's bilaterally Assessment: PPD 2 VAVD/ twin gestation at 38 weeks Acute blood loss anemia Plan: Routine care. Encourage breast feeding. Encourage ambulation. Ferrous sulfate supplementation. Plan for discharge today Vitals - Labs Vital Signs - I&O Vital Signs Date Time Temp Pulse Resp B/P (MAP) Pulse Ox O2 Delivery O2 Flow Rate FiO2 08/24/22 03:00 36.3 77 16 111/72 (85) 98 Room Air 08/23/22 20:57 36.2 87 18 108/63 (78) 98 Room Air 08/23/22 15:26 36.3 83 18 120/74 (89) 98 Room Air 08/23/22 09:16 36.4 88 18 108/56 (73) 98 Room Air ANTOINE SHELDON DO Aug 24, 2022 07:37
--- NOTE | 2022-08-24 07:38 | Discharge Inst-Women's Service ---
Discharge Inst-Women's Serv Depart Medication/Instructions New, Converted or Re-Newed RX: Transmitted to Pharmacy Final Diagnosis PPD 2 NVD Problems Reviewed?: Yes Consults/Follow Up Additional Follow Up: Yes Orders/Referrals Dr. Sheldon in 6 weeks Activity Activity: Activity as Tolerated Driving Instructions: No Driving for 1 Week NO SMOKING: NO SMOKING Nothing Inside Vagina: No Douching, No [place], No Tampons Diet Discharge Diet: No Restrictions Symptoms to Report to : Bleeding Excessive, Pain Increased, Fever Over 101 Degrees F, Vaginal Bleeding Increase, Questions/Concerns For Any Problems or Questions: Contact Your Physician ANTOINE SHELDON DO Aug 24, 2022 07:38
[2022-08-24 08:37] VITALS: BP 111/68
[2022-08-24] MEDS: WITCH HAZEL(TUCKS) 40 EA JAR TOP PRN (08:44)
[2022-08-24] MEDS: DIBUCAINE 1% OINTMENT 28 GM TUBE TOP PRN (08:44)
[2022-08-24] MEDS: FERROUS SULF 325 MG (IRON) TAB PO SCH (08:44)
[2022-08-24] MEDS: DOCUSATE SODIUM 100 MG (COLACE) CAP PO SCH (08:44)
[2022-08-24] MEDS: BENZOCAINE/MENTHOL (DERMOPLAST) 56 ML CAN TP PRN (09:42)
--- NOTE | 2022-08-24 09:56 | Anesthesia-Regional Post-Op ---
Regional Patient Condition Mental Status: Alert, Oriented x3 Circulation: Same as Pre-Op Headache: Absent Sensation: Decreased (Right outter thigh) Motor Block: Absent Post Op Complications Complications None Follow Up Care/Instructions Patient Instructions Reassured patient. Informed patient area not resolving by 1 week that we need to follow-up with her. Anesthesia/Patient Condition Patient is doing well, no complaints, stable vital signs, no apparent adverse anesthesia problems. No complications reported per nursing. ROSELIA MIRANDA ELECTRICAL SERVICE TECHNICIAN Aug 24, 2022 09:56
[2022-08-26] MEDS: IBUPROFEN 600 MG (MOTRIN) TAB PO SCH (12:08)
== END 2022-08-24 11:15 | disposition home or self-care (01) | DRG 806 ==
LOC: WSo 01:28 → LDRP 01:28 → WSo 01:49 → LDRP 01:50
PROVIDERS: ADMIT Obstetrics & Gynecology; ATTEND Obstetrics & Gynecology
PROC: 10D07Z6 Extraction of Products of Conception, Vacuum, Via Natural or Artificial Opening (ICD-10-PCS; principal; 2022-08-22)
PROC: 10907ZC Drainage of Amniotic Fluid, Therapeutic from Products of Conception, Via Natural or Artificial Opening (ICD-10-PCS; 2022-08-22)
PROC: 0W8NXZZ Division of Female Perineum, External Approach (ICD-10-PCS; 2022-08-22)
DX: O30.043 Twin pregnancy, dichorionic/diamniotic, third trimester (principal); D62 Acute posthemorrhagic anemia; Z37.2 Twins, both liveborn; Z3A.38 38 weeks gestation of pregnancy; O90.81 Anemia of the puerperium
CPT/HCPCS: 36415; 81000; 85025; 86780; 86850; 86900; 86901